=== PATIENT | female | born 1965 | race Caucasian/White ===

== ENCOUNTER 2019-05-18 07:52 | Day surgery (SDC) | payer MEDICAID ==
[2019-05-13 12:40] LABS: Urine Bacteria NONE SEEN /hpf (None Seen); Urine Blood Negative /uL (Negative); Urine Specific Gravity 1.007 (1.001-1.035); Urine WBC 1 /hpf (0 - 5)
[2019-05-13 12:51] LABS: INR < 0.93 (0.9-1.15); Partial Thromboplastin Time 26.9 sec (23.64-32.05)
[2019-05-13 12:55] LABS: Basophils # (auto) 0.1 uL; Basophils % (auto) 0.8 % (0.0-2.0); Eosinophils # (auto) 0.3 uL; Eosinophils % (auto) 4.3 % (0.0-7.0); Hematocrit 40.2 % (36.0-46.0); Lymphocytes # (auto) 1.8 uL; Lymphocytes % (auto) 22.4 % (10.0-50.0); Mean Corpuscular Hemoglobin 27.5 pg (28.0-32.0); Mean Corpuscular Hgb Conc. 32.4 g/dL (32.0-36.0); Monocytes # (auto) 0.5 uL; Monocytes % (auto) 6.8 % (0.0-12.0); Neutrophils # (auto) 5.2 uL; Neutrophils % (auto) 65.7 % (37.0-80.0); Nucleated Red Blood Cells % 0.1 %; Platelet Count (auto) 257 10^3/uL (140-450); Red Blood Cells 4.73 10^6/uL (4.0-5.20); Red Cell Distribution Width 13.6 % (11.8-14.3)
[2019-05-13 13:06] LABS: Potassium 4.4 mmol/L (3.5-5.1)
[2019-05-13 13:17] LABS: Albumin 3.6 g/dL (3.4-5.0); BUN/Creatinine Ratio 21.8; Bilirubin, Total 0.3 mg/dL (0.2-1.0); Calcium 9.5 mg/dL (8.5-10.1); Total Protein 7.4 g/dL (6.4-8.2)
[~2019-05-18] VITALS: Ht 152.4 cm; Wt 83.9 kg
[~2019-05-18 07:52] MED LIST: ALBUAER3 IN; CHOL200021 PO; DICL-176 PO; DULO20CA PO; ENAL10TA PO; FAMO40TA49 PO; FERR-20 PO; FURO20TA3 PO; GABA300C10 PO; METF-371 PO; MISCTAB PO; MONT10TA34 PO; NAPR375T27 PO; OMEP20TA PO; POTA8TAB2 PO; SIMV-8 PO
[2019-05-18] MEDS ORDERED: ceFAZolin 1GM/50ML 50 ML IV ONE (09:35)
[2019-05-18] MEDS ORDERED: ROPIVACAINE 0.5% (5MG/ML) 20ML AMPULE IJ ONE (10:23)
[2019-05-18] MEDS ORDERED: fentaNYL CITRATE 100 MCG/2 ML VL ONE (10:37)
[2019-05-18] MEDS ORDERED: MIDAZOLAM HCL 1MG/1ML-2 ML VIAL ONE (10:37)
[2019-05-18] MEDS ORDERED: PROPOFOL 10 MG/ML 20 ML IV ONE (10:38)
[2019-05-18] MEDS ORDERED: fentaNYL CITRATE 100 MCG/2 ML VL IV PRN (11:15)
[2019-05-18] MEDS ORDERED: ONDANSETRON HCL 4 MG/2 ML VIAL IV PRN (11:15)
[2019-05-18] MEDS ORDERED: hydrALAZINE HCL 20 MG/ML VL IV PRN (11:15)
[2019-05-18] MEDS ORDERED: ePHEDrine SULFATE 50 MG/ML AMP IV PRN (11:15)
[2019-05-18 11:36] VITALS: BP 133/74
== END 2019-05-18 11:50 | disposition home or self-care (01) ==
LOC: SUR 07:52
PROVIDERS: ATTEND Podiatrist Foot & Ankle Surgery
DX: M21.621 Bunionette of right foot (principal); I10 Essential (primary) hypertension; J45.909 Unspecified asthma, uncomplicated; E11.40 Type 2 diabetes mellitus with diabetic neuropathy, unspecified; E78.00 Pure hypercholesterolemia, unspecified; M06.9 Rheumatoid arthritis, unspecified; Z98.890 Other specified postprocedural states; I25.10 Atherosclerotic heart disease of native coronary artery without angina pectoris; K21.9 Gastro-esophageal reflux disease without esophagitis; E66.9 Obesity, unspecified; Z79.84 Long term (current) use of oral hypoglycemic drugs; Z90.49 Acquired absence of other specified parts of digestive tract; Z68.36 Body mass index [BMI] 36.0-36.9, adult; Z79.899 Other long term (current) drug therapy
CPT/HCPCS: 28110; 36415; 73620; 80053; 81001; 82962; 85025; 85610; 85730; 93005; C1713; C1769; J0690; J2250; J2704; J2795; J3010

== ENCOUNTER → 2019-07-27 | Day surgery (SDC) | payer MEDICAID ==
[2019-07-25 12:57] LABS: Urine WBC None Seen /hpf (0 - 5)
[2019-07-25 13:01] LABS: Basophils # (auto) 0 uL; Basophils % (auto) 0.5 % (0.0-2.0); Eosinophils # (auto) 0.2 uL; Eosinophils % (auto) 2.5 % (0.0-7.0); Hemoglobin 13.5 g/dL (12.2-16.2); Lymphocytes # (auto) 1.7 uL; Lymphocytes % (auto) 18.8 % (10.0-50.0); Mean Corpuscular Hemoglobin 27.2 pg (28.0-32.0); Mean Corpuscular Hgb Conc. 32.8 g/dL (32.0-36.0); Monocytes # (auto) 0.5 uL; Monocytes % (auto) 5.8 % (0.0-12.0); Neutrophils # (auto) 6.7 uL; Neutrophils % (auto) 72.4 % (37.0-80.0); Nucleated Red Blood Cells % 0.1 %; Platelet Count (auto) 293 10^3/uL (140-450); Red Blood Cells 4.94 10^6/uL (4.0-5.20); Red Cell Distribution Width 14.2 % (11.8-14.3); White Blood Cell 9.2 10^3/uL (4.4-10.8)
[2019-07-25 13:20] LABS: INR 0.95 (0.9-1.15); Partial Thromboplastin Time 27.9 sec (23.64-32.05)
[2019-07-25 13:24] LABS: Urine Bacteria NONE SEEN /hpf (None Seen); Urine Blood Negative /uL (Negative); Urine Specific Gravity 1.005 (1.001-1.035)
[2019-07-25 13:32] LABS: Albumin 3.6 g/dL (3.4-5.0); Potassium 4.3 mmol/L (3.5-5.1)
[2019-07-25 13:35] LABS: BUN/Creatinine Ratio 18.1; Bilirubin, Total 0.3 mg/dL (0.2-1.0); Total Protein 7.9 g/dL (6.4-8.2)
[~2019-07-27] VITALS: Ht 152.4 cm; Wt 88.5 kg
[~2019-07-27] MED LIST changes: +LEVOFLOXACIN 500MG 100 ML IV ONE; +ceFAZolin 1GM/50ML 50 ML IV ONE
== END | disposition home or self-care (01) ==
LOC: SUR 13:11
PROVIDERS: ATTEND Podiatrist Foot & Ankle Surgery
DX: Z01.812 Encounter for preprocedural laboratory examination (principal); T84.213A Breakdown (mechanical) of internal fixation device of bones of foot and toes, initial encounter; T84.69XA Infection and inflammatory reaction due to internal fixation device of other site, initial encounter; E11.9 Type 2 diabetes mellitus without complications; E66.9 Obesity, unspecified; Z68.38 Body mass index [BMI] 38.0-38.9, adult; Z98.890 Other specified postprocedural states; Z79.84 Long term (current) use of oral hypoglycemic drugs; Z79.899 Other long term (current) drug therapy
CPT/HCPCS: 36415; 80053; 81001; 82962; 85025; 85610; 85730; J0690

== ENCOUNTER → 2019-08-06 | Day surgery (SDC) | payer MEDICAID ==
[~2019-08-06] MED LIST changes: -LEVOFLOXACIN 500MG 100 ML IV ONE; +ONDANSETRON HCL 4 MG/2 ML VIAL IV PRN; +PROPOFOL 10 MG/ML 20 ML IV ONE; +ROPIVACAINE 0.5% (5MG/ML) 20ML AMPULE IJ ONE; +fentaNYL CITRATE 100 MCG/2 ML VL IV PRN; +fentaNYL CITRATE 100 MCG/2 ML VL ONE; +hydrALAZINE HCL 20 MG/ML VL IV PRN
[2019-08-06 16:31] LABS: Basophils # (auto) 0.1 uL; Basophils % (auto) 0.7 % (0.0-2.0); Eosinophils # (auto) 0.2 uL; Hematocrit 39.6 % (36.0-46.0); Hemoglobin 13.1 g/dL (12.2-16.2); Lymphocytes # (auto) 1.3 uL; Lymphocytes % (auto) 17.8 % (10.0-50.0); Mean Corpuscular Hemoglobin 27.5 pg (28.0-32.0); Mean Corpuscular Hgb Conc. 33.1 g/dL (32.0-36.0); Mean Corpuscular Volume 83.2 fL (80.0-100.0); Monocytes # (auto) 0.5 uL; Monocytes % (auto) 6.3 % (0.0-12.0); Neutrophils # (auto) 5.5 uL; Neutrophils % (auto) 73.2 % (37.0-80.0); Platelet Count (auto) 255 10^3/uL (140-450); Red Blood Cells 4.76 10^6/uL (4.0-5.20); Red Cell Distribution Width 14.3 % (11.8-14.3); White Blood Cell 7.6 10^3/uL (4.4-10.8)
[2019-08-06 16:49] LABS: Calcium 9.2 mg/dL (8.5-10.1); Potassium 3.8 mmol/L (3.5-5.1)
[2019-08-06 16:50] LABS: INR 0.97 (0.9-1.15); Partial Thromboplastin Time 27.9 sec (23.64-32.05)
[2019-08-06 16:51] LABS: BUN/Creatinine Ratio 17.8
[2019-08-06 17:45] VITALS: BP 124/54
== END | disposition home or self-care (01) ==
LOC: SUR 10:45
PROVIDERS: ATTEND Podiatrist Foot & Ankle Surgery
DX: T84.213A Breakdown (mechanical) of internal fixation device of bones of foot and toes, initial encounter (principal); T84.69XA Infection and inflammatory reaction due to internal fixation device of other site, initial encounter; L90.5 Scar conditions and fibrosis of skin; I25.10 Atherosclerotic heart disease of native coronary artery without angina pectoris; I10 Essential (primary) hypertension; E11.9 Type 2 diabetes mellitus without complications; J45.909 Unspecified asthma, uncomplicated; E66.9 Obesity, unspecified; F41.9 Anxiety disorder, unspecified; K44.9 Diaphragmatic hernia without obstruction or gangrene; M06.9 Rheumatoid arthritis, unspecified; D64.9 Anemia, unspecified; Z79.84 Long term (current) use of oral hypoglycemic drugs; Z79.899 Other long term (current) drug therapy; Z68.30 Body mass index [BMI] 30.0-30.9, adult
CPT/HCPCS: 20680; 36415; 71045; 80048; 82962; 84702; 85025; 85610; 85730; 88300; 93005; J0690; J2704; J2795; J3010; L3260